=== PATIENT | male | born 1970 | race Caucasian/White ===

== ENCOUNTER 2016-11-03 12:37 | Emergency (ER) | payer BC ==
[2016-11-03] MEDS ORDERED: Sodium Chloride 0.9% 10 ML Syringe FLUSH PRN (14:10)
--- NOTE | 2016-11-03 14:16 | EDM.PDOC ---
ED HPI GI/ABDOMINAL - General Chief Complaint: Back Pain or Injury Stated Complaint: LOW BACK PAIN Time Seen by Provider: 11/03/16 13:55 Source of Information: Reports: Patient History Limitations: Reports: No limitations - History of Present Illness INITIAL COMMENTS - FREE TEXT/NARRATIVE: Patient is a 45 y/o male who presents to the E.D complaining of right cva/flank/ groin pain. States this started abruptly at midnight last night. Pain started right CVA and radiated to his right flank and now it's into his right inguinal region. Describes the discomfort as a dull ache. States at onset discomfort was rated a 7/10. Currently it rated 3-4/10. States pain did mildly decrease with heating pad and application of icy hot. States last night he was unable to get comfortable for a long period of time. He has no history of kidney stones or similar pain in the past. States earlier that morning at approximately 5:30 he did work out his back, legs, and abdomen. He had no discomfort after exercising. Denies any activities or trauma during the course of the day that may contribute discomfort. Patient has no history of inguinal hernias. Denies any pain with urination. Denies any fever/chills, nausea/ vomiting, pain with urination, diarrhea, constipation, or any additional complaints. Patient has a history gastric bypass approximately one year ago and has lost approximately 136 pounds. States he is on calcium supplementation and is currently on a high-protein diet. Timing/Duration: Reports: Constant Location: flank (Right inguinal/flank) Quality: Reports: ache Severity: mild Improves with: Reports: other (Unknown) Worsens with: Reports: other (Unknown) Context: Reports: lifting (Listed back/legs yesterday with no unusual exercises) Associated Symptoms: Reports: back pain (Right flank/CVA), testicular pain ( Intermittent sharp right testicular pain. Radiates from right inguinal region.) , groin pain (Right). Denies: chest pain, shoulder pain, constipation, diarrhea , bloody stools, fever/chills, loss of appetite, malaise, nausea/vomiting Treatments [facility]: Reports: Other (see below) (see hpi) - Related Data Allergies/ADRs: Allergies Allergy/AdvReac Type Severity Reaction Status Date / Time Penicillins Allergy Hives Verified 11/03/16 13:57 Home Meds: Home Meds Multivitamin [Multivitamins] 1 each PO DAILY 10/02/15 [History] Omeprazole [Prilosec] 20 mg PO DAILY 10/02/15 [History] Acetaminophen/HYDROcodone [[place] 325-5 MG] 1 tab PO Q6H PRN #15 tablet 11/03/16 [Rx] Calcium Carbonate [Calcium] 600 mg PO BID 11/03/16 [History] Cyanocobalamin (Vitamin B-12) [Vitamin B-12] 5,000 mcg PO DAILY 11/03/16 [ History] Ondansetron [Zofran ODT] 4 mg PO Q6H PRN #10 tab.dis 11/03/16 [Rx] Tamsulosin HCl [Flomax] 0.4 mg PO QAM #10 cap.er.24h 11/03/16 [Rx] Past Medical History Cardiovascular History: Reports: High cholesterol, Hypertension, Other (see below) Other Cardiovascular History: enlarged heart Respiratory History: Reports: Asthma Gastrointestinal History: Reports: Other (see below) Other Gastrointestinal History: umbilical hernia - Past Surgical History GI Surgical History: Reports: Bariatric procedure Social & Family History - Family History Family Medical History: Noncontributory - Tobacco Use Smoking Status *Q: Never Smoker Second Hand Smoke Exposure: No - Caffeine Use Caffeine Use: Reports: None - Recreational Drug Use Recreational Drug Use: No ED ROS GENERAL - Review of Systems Review Of Systems: ROS reveals no pertinent complaints other than HPI. Constitutional: Reports: no symptoms Respiratory: Reports: No Symptoms Cardiovascular: Reports: No symptoms : Reports: flank pain (Right). Denies: dysuria, frequency, hematuria, incontinence, urinary retention Skin: Denies: bruising Neurological: Denies: Dizziness ED EXAM, GI/ABD - Physical Exam Exam: See Below Exam Limited By: No limitations General Appearance: alert, WD/WN, no apparent distress, obese Ears: hearing grossly normal Nose: normal inspection Throat/Mouth: Normal inspection, No airway compromise Neck: normal inspection, supple Respiratory/Chest: no respiratory distress, lungs clear, normal breath sounds, no accessory muscle use, chest non-tender Cardiovascular: normal peripheral pulses, regular rate, rhythm, no edema, no JVD , no murmur GI/Abdominal: normal bowel sounds, soft, non tender, no organomegaly, no distention (Male) Exam: No hernia, Normal inspection, Circumcised. No: Hernia, Inguinal lymphadenopathy, Scrotal swelling, Scrotum tenderness (L), Scrotum tenderness (R), Testicular tenderness (L), Testicular tenderness (R) Rectal (Males) Exam: Deferred Back Exam: normal inspection, full range of motion, CVA tenderness (R) (Mild). No: CVA tenderness (L), muscle spasm Neurological: alert, oriented, normal cognition, normal gait Psychiatric: normal affect, normal mood Skin Exam: Warm, Dry, Intact, Normal color Course - Vital Signs Last Recorded V/S: Last Vital Signs Temp 98.1 F 11/03/16 13:51 Pulse 79 11/03/16 16:45 Resp 18 11/03/16 16:45 BP 134/79 11/03/16 16:45 Pulse Ox 97 11/03/16 16:45 - Orders/Labs/Meds Orders: Active Orders 24 hr Category Date Time Status Communication Order [RC] STAT Care 11/03/16 15:46 Active Peripheral IV Care [RC] . DIRECTED Care 11/03/16 14:10 Active Abdomen Pelvis wo Cont [CT] Stat Exams 11/03/16 14:45 Taken DME for Discharge [COMM] Stat Oth 11/03/16 15:41 Ordered Peripheral IV Insertion Adult [OM.PC] Stat Oth 11/03/16 14:10 Ordered Labs: Laboratory Tests 11/03/16 11/03/16 11/03/16 Range/Units 14:20 14:26 14:26 WBC 14.35 H (4.23-9.07) K/mm3 RBC 5.13 (4.63-6.08) M/mm3 Hgb 16.1 (13.7-17.5) gm/L Hct 46.1 (40.1-51.0) % MCV 89.9 (79.0-92.2) fl MCH 31.4 (25.7-32.2) pg MCHC 34.9 (32.2-35.5) g/dl RDW Std Deviation 44.3 H (35.1-43.9) fL Plt Count 311 (163-337) K/mm3 MPV 9.9 (9.4-12.3) fl Neut % (Auto) 80.9 H (34.0-67.9) % Lymph % (Auto) 9.3 L (21.8-53.1) % Blair % (Auto) 9.2 (5.3-12.2) % Eos % (Auto) 0.3 L (0.8-7.0) Baso % (Auto) 0.2 (0.1-1.2) % Neut # (Auto) 11.59 H (1.78-5.38) K/mm3 Lymph # (Auto) 1.34 (1.32-3.57) K/mm3 Blair # (Auto) 1.32 H (0.30-0.82) K/mm3 Eos # (Auto) 0.05 (0.04-0.54) K/mm3 Baso # (Auto) 0.03 (0.01-0.08) K/mm3 Manual Slide Review Normal smear Sodium 140 (136-145) mEq/L Potassium 3.5 (3.5-5.1) mEq/L Chloride 105 (98-107) mEq/L Carbon Dioxide 22 (21-32) mEq/L Anion Gap 16.5 H (5-15) BUN 21 H (7-18) mg/dL Creatinine 1.4 H (0.7-1.3) mg/dL Est Cr Clr Drug Dosing 65.93 mL/min Estimated GFR (MDRD) 55 (>60) mL/min BUN/Creatinine Ratio 15.0 (14-18) Glucose 110 H (74-106) mg/dL Calcium 8.8 (8.5-10.1) mg/dL Total Bilirubin 1.0 (0.2-1.0) mg/dL AST 18 (15-37) U/L ALT 31 (16-63) U/L Alkaline Phosphatase 64 (46-116) U/L C-Reactive Protein 0.4 (<1.0) mg/dL Total Protein 6.8 (6.4-8.2) g/dl Albumin 3.8 (3.4-5.0) g/dl Globulin 3.0 gm/dL Albumin/Globulin Ratio 1.3 (1-2) Urine Color Yellow (Yellow) Urine Appearance Slt cloudy H (Clear) Urine pH 6.0 (5.0-8.0) Ur Specific [place] 1.025 (1.005-1.030) Urine Protein Trace H (Negative) Urine Glucose (UA) Negative (Negative) Urine Ketones 2+ H (Negative) Urine Occult Blood 3+ H (Negative) Urine Nitrite Negative (Negative) Urine Bilirubin Negative (Negative) Urine Urobilinogen 1.0 (0.2-1.0) Ur Leukocyte Esterase Negative (Negative) Urine RBC 5-10 H (0-5) /hpf Urine WBC 0-5 (0-5) /hpf Ur Epithelial Cells 0-5 (0-5) /hpf Calcium Oxalate Crystal Moderate H (NONE) Urine Bacteria Few (FEW) /hpf Urine Mucus Not seen (FEW) /hpf Meds: Medications Discontinued Medications Generic Name Dose Route Start Last Admin Trade Name Freq PRN Reason Stop Dose Admin Hydromorphone HCl 0.5 mg 11/03/16 14:54 11/03/16 15:35 Dilaudid IM 11/03/16 14:55 0.5 mg ONETIME ONE Administration Sodium Chloride 1,000 mls @ 250 mls/hr 11/03/16 14:54 11/03/16 15:45 Normal Saline IV 11/03/16 18:53 500 mls/hr ONETIME ONE Infusion Sodium Chloride 10 ml 11/03/16 14:10 11/03/16 15:35 Saline Flush FLUSH 10 ml ASDIRECTED PRN Administration Keep Vein Open Tamsulosin HCl 0.4 mg 11/03/16 15:50 11/03/16 16:04 Flomax PO 11/03/16 15:51 0.4 mg ONETIME ONE Administration - Re-Assessments/Exams Free Text/Narrative Re-Assessment/Exam: Order peripheral IV. Initial labs and studies include CBC, chem 14, CRP, UA with micro. Pain is mild and tolerable per patient at this point. Will hold off any narcotics at this time. 11/03/16 14:17 11/03/16 14:46 Labs reviewed: White blood cell count 14.35, neutrophil percentage 80.9, neutrophil #11.99, sodium 140, potassium 3.5, INR 16.5, creatinine 1.4, creatinine within normal limits. UA revealed trace protein, ketones 2+, occult blood 3+, urine rbc's 5-10, and calcium oxalate moderate. Reassessment, pain constant 4/10. NS 250mls/hr and dilaudid 0.5mg orderd. Ordered CT abdomen/pelvis without contrast, kidney stone protocol. 11/03/16 15:35 CT study did reveal a large kidney stone within the right ureter with hydronephrosis and perinephric fluid present. Awaiting final interpretation by radiology. 11/03/16 15:42 CT abdomen and pelvis without contrast impression: Proximal right ureteral obstructing calculus measuring 5 mm in diameter. Right perinephric edema. Moderate hydronephrosis and proximal right hydroureter. Order Flomax 0.4 mg by mouth. Pain is well-controlled. Will discharge home with instructions and prescriptions as documented. 11/03/16 15:51 Departure - Departure Time of Disposition: 15:46 Disposition: Home, Self-Care 01 Condition: good Clinical Impression: Renal insufficiency, Kidney stones, calcium oxalate Prescriptions: Acetaminophen/HYDROcodone [[place] 325-5 MG] 1 tab PO Q6H PRN #15 tablet PRN Reason: Pain Ondansetron [Zofran ODT] 4 mg PO Q6H PRN #10 tab.dis PRN Reason: Nausea Tamsulosin HCl [Flomax] 0.4 mg PO QAM #10 cap.er.24h Instructions: Kidney Stones, [id number] Referrals: PCP,None [Primary Care Provider] - Forms: ED Department Discharge Additional Instructions: CT of the abdomen did reveal a 5mm kidney stone within your right ureter. This stone has a long ways to go to pass. Will have you strain all urine voids to see if the stone passes. Push the fluids. Utilize Tylenol for mild to moderate pain. For severe pain take [place] as prescribed. For nausea take Zofran 4 mg ODT every 6 hours. Take Flomax one tab every day until stone passes. Followup with a urologist and [place] of your choosing for reevaluation of kidney stones. Return back to the ED if you develop any new or worsening symptoms. No driving today or while taking the [place]. - My Orders Last 24 Hours: My Active Orders 11/03/16 14:10 Peripheral IV Care [RC] . DIRECTED Peripheral IV Insertion Adult [OM.PC] Stat 11/03/16 14:45 Abdomen Pelvis wo Cont [CT] Stat 11/03/16 15:41 DME for Discharge [COMM] Stat 11/03/16 15:46 Communication Order [RC] STAT - Assessment/Plan Last 24 Hours: My Active Orders 11/03/16 14:10 Peripheral IV Care [RC] . DIRECTED Peripheral IV Insertion Adult [OM.PC] Stat 11/03/16 14:45 Abdomen Pelvis wo Cont [CT] Stat 11/03/16 15:41 DME for Discharge [COMM] Stat 11/03/16 15:46 Communication Order [RC] STAT
[2016-11-03] MEDS ORDERED: HYDROmorphone 0.5 MG/0.5 ML Syringe IM ONE (14:54)
[2016-11-03] MEDS ORDERED: Sodium Chloride 0.9% 1,000 ML IV ONE (14:54)
[2016-11-03] MEDS ORDERED: Tamsulosin 0.4 MG Cap.ER PO ONE (15:50)
[2016-11-03 18:29] VITALS: BP 134/79
--- NOTE | 2016-11-04 12:19 | CT ---
CT abdomen and pelvis Technique: Multiple axial sections were obtained from above the dome of the diaphragm inferiorly through the pubic symphysis. Intravenous and oral contrast was not utilized. Study has been performed as a ureteral stone protocol. Findings: Mild right-sided hydronephrosis is seen. Inflammatory change around the right kidney is seen. Both these findings are felt to be caused by a proximal right obstructing ureteral stone located slightly past the UPJ. This stone measures approximately 6.2 mm. No other abnormal calcifications are seen within the right or left kidneys. No other abnormal calcifications are seen along the course of the ureters. Previous stomach and bowel surgery is noted. Visualized portions of the liver and spleen show no discrete abnormality. Small hiatal hernia is noted. Adrenal glands show no nodule. Pancreas appears within normal limits. Gallbladder shows no calcified gallstones. Aorta shows no aneurysmal dilatation. No retroperitoneal adenopathy or mesenteric abnormalities are appreciated. Appendix is seen which is normal. No pelvic mass or adenopathy is seen. No free fluid is seen. Bone window settings were reviewed which appear within normal limits for the patient's age. Impression: 1. Right-sided hydronephrosis with mild surrounding inflammatory change around the right kidney. These findings are caused by an obstructing right proximal ureteral stone measuring about 6.2 mm. 2. Previous abdominal surgery. Small hiatal hernia. 3. No additional abnormality is identified on noncontrast CT study of the abdomen and pelvis. Diagnostic code #3 I agree with preliminary report issued by [facility] (preliminary report dictated on 11/03/16, 4:39 PM Central Time)
== END 2016-11-03 16:45 | disposition home or self-care (01) ==
LOC: JD.ED 12:37
DX: N13.2 Hydronephrosis with renal and ureteral calculous obstruction (principal); N28.9 Disorder of kidney and ureter, unspecified; E78.00 Pure hypercholesterolemia, unspecified; I10 Essential (primary) hypertension; J45.909 Unspecified asthma, uncomplicated; Z88.0 Allergy status to penicillin; Z79.899 Other long term (current) drug therapy; Z98.84 Bariatric surgery status
CPT/HCPCS: 36415; 74176; 80053; 81001; 85025; 86140; 96361; 96374; 99284; A9270; J1170; J7040; J7050

== ENCOUNTER 2020-04-03 17:10 | Emergency (ER) | payer BC ==
[2020-04-03 17:29] VITALS: BP 131/95; PULSE 78
[2020-04-03] MEDS ORDERED: Lidocaine 1% 10 ML MDV INJECT ONE (17:40)
[2020-04-03] MEDS ORDERED: Diphtheria,Pertussis(Acell),Tetanus Vaccine 0.5 ML Syringe IM ONE (17:40)
[2020-04-03] MEDS ORDERED: Cephalexin 500 MG Cap PO ONE (18:15)
--- NOTE | 2020-04-03 19:12 | EDM.PDOC ---
ED HPI GENERAL MEDICAL PROBLEM - General Chief Complaint: Laceration Stated Complaint: LEFT POINTER FINGER CUT/SMASHED Time Seen by Provider: 04/03/20 17:37 Source of Information: Reports: Patient History Limitations: Reports: No Limitations - History of Present Illness INITIAL COMMENTS - FREE TEXT/NARRATIVE: Patient is a 49-year-old male presenting to the emergency department with complaints of lacerations and a crush injury to his left index finger. He states that his finger became crushed between his pontoon and the canopy that attaches to it. Patient is unsure when his last tetanus vaccination was. Left Finger-Index Pain Score (Numeric/FACES): 2 - Related Data Allergies Allergy/AdvReac Type Severity Reaction Status Date / Time Penicillins Allergy Hives Verified 04/03/20 17:29 Home Meds: Home Meds Multivitamin [Multivitamins] 1 each PO DAILY 10/02/15 [History] Omeprazole [Prilosec] 20 mg PO DAILY 10/02/15 [History] Acetaminophen/HYDROcodone [[place] 325-5 MG] 1 tab PO Q6H PRN #15 tablet 11/03/16 [Rx] Calcium Carbonate [Calcium] 600 mg PO BID 11/03/16 [History] Cyanocobalamin (Vitamin B-12) [Vitamin B-12] 5,000 mcg PO DAILY 11/03/16 [History] Ondansetron [Zofran ODT] 4 mg PO Q6H PRN #10 tab.dis 11/03/16 [Rx] Tamsulosin HCl [Flomax] 0.4 mg PO QAM #10 cap.er.24h 11/03/16 [Rx] Past Medical History Cardiovascular History: Reports: High Cholesterol, Hypertension, Other (See Below) Other Cardiovascular History: enlarged heart Respiratory History: Reports: Asthma Gastrointestinal History: Reports: Other (See Below) Other Gastrointestinal History: umbilical hernia - Past Surgical History GI Surgical History: Reports: Bariatric Procedure, Hernia Repair/Other Social & Family History - Family History Family Medical History: Noncontributory - Tobacco Use Smoking Status *Q: Never Smoker Second Hand Smoke Exposure: No - Caffeine Use Caffeine Use: Reports: None - Recreational Drug Use Recreational Drug Use: No ED ROS GENERAL - Review of Systems Review Of Systems: Comprehensive ROS is negative, except as noted in HPI. ED EXAM, SKIN/RASH Exam: See Below General Appearance: Alert, WD/WN, No Apparent Distress Respiratory/Chest: No Respiratory Distress, Lungs Clear, Normal Breath Sounds, No Accessory Muscle Use, Chest Non-Tender Cardiovascular: Normal Peripheral Pulses, Regular Rate, Rhythm, No Edema, No Gallop, No JVD, No Murmur, No Rub Extremities: Other (1 cm V-shaped laceration overlying the middle phalanx of the left index finger. 3 cm laceration to the volar aspect of the left index finger overlying the middle phalanx. Scant amount of active bleeding. Patient has strength of flexion and extension.) Neurological: Alert, Oriented, CN II-XII Intact, Normal Cognition, Normal Gait, Normal Reflexes, No Motor/Sensory Deficits Psychiatric: Normal Affect, Normal Mood ED SKIN PROCEDURES - Laceration/Wound Repair Left Dorsal Digit - 2nd (Index) Appearance: Subcutaneous Anesthetic Type: Local Local Anesthesia - Lidocaine (Xylocaine): 1% Plain Local Anesthetic Volume: 1cc Skin Prep: Providone-Iodine (Betadine), Saline, Sterile Drape Exploration/Debridement/Repair: Wound Explored, Minimal Debridement, No Foreign Material Found Closed with: Sutures Lac/Wound length In cm: 1 (flap laceration) Suture Size: 4-0 # of Sutures: 2 Suture Type: Nylon Sterile Dressing Applied: Provider Tetanus Status Addressed: Yes Complications: No Left Ventral Digit - 2nd (Index) Appearance: Subcutaneous Distal NVT: Neuro & Vascular Intact, No Tendon Injury Local Anesthesia - Lidocaine (Xylocaine): 1% Plain Local Anesthetic Volume: 2cc Skin Prep: Providone-Iodine (Betadine), Saline, Sterile Drape Exploration/Debridement/Repair: Wound Explored, Minimal Debridement, No Foreign Material Found Closed with: Sutures Lac/Wound length In cm: 3 Suture Size: 4-0 # of Sutures: 6 Suture Type: Nylon Suture Size: 4-0 Sterile Dressing Applied: Provider Tetanus Status Addressed: Yes Complications: No Course - Vital Signs Last Recorded V/S: Last Vital Signs Temp 98.3 F 04/03/20 17:26 Pulse 78 04/03/20 17:26 Resp 16 04/03/20 17:26 BP 131/95 H 04/03/20 17:26 Pulse Ox 97 04/03/20 17:26 - Orders/Labs/Meds Orders: Active Orders 24 hr Category Date Time Status Fingers Second Digit Lt F1 [CR] Stat Exams 04/03/20 17:39 Taken Meds: Medications Discontinued Medications Generic Name Dose Route Start Last Admin Trade Name Nathalie PRN Reason Stop Dose Admin Cephalexin 500 mg 04/03/20 18:15 04/03/20 19:04 Keflex PO 04/03/20 18:16 500 mg ONETIME ONE Administration Diphtheria/Tetanus/Acell Pertussis 0.5 ml 04/03/20 17:40 04/03/20 17:52 Adacel IM 04/03/20 17:41 0.5 ml .ONCE ONE Administration Lidocaine HCl 10 ml 04/03/20 17:40 04/03/20 17:54 Xylocaine 1% INJECT 04/03/20 17:41 10 ml ONETIME ONE Administration - Re-Assessments/Exams Free Text/Narrative Re-Assessment/Exam: X-ray of the left index finger shows a small avulsion fracture to the distal aspect of the middle phalanx. Lacerations were closed with sutures. See procedure notes for closure. Since there is a fracture of the bone and open skin, we will treat this as an open fracture. Patient will be started on Keflex for antibiotic prophylaxis. Lacerations were covered with antibiotic ointment and nonstick Telfa. Aluminum splint was applied to the finger. Recommend follow-up with orthopedist, Dr. Deras in approximately 1 week. Sutures to be removed in 7 to 10 days. Discharge instructions as documented. Departure - Departure Time of Disposition: 19:07 Disposition: Home, Self-Care 01 Condition: Good Clinical Impression: Finger laceration Qualifiers: Encounter type: initial encounter Finger: index finger Damage to nail status: without damage Foreign body presence: without foreign body Laterality: left Qualified Code(s): S61.211A - Laceration without foreign body of left index finger without damage to nail, initial encounter Avulsion fracture of middle phalanx of finger Qualifiers: Encounter type: initial encounter Fracture type: open Qualified Code(s): S62.629B - Displaced fracture of middle phalanx of unspecified finger, initial encounter for open fracture - Discharge Information *PRESCRIPTION DRUG MONITORING PROGRAM REVIEWED*: No *COPY OF PRESCRIPTION DRUG MONITORING REPORT IN PATIENT CJ: No Instructions: Finger Fracture, Adult, Laceration Care, Adult Referrals: Latanya Cedeno PA-C [Primary Care Provider] - Jigar Deras MD [Physician] - Forms: ED Department Discharge Additional Instructions: You were seen in the emergency department today for a lacerations to your left index finger. The wounds were cleansed and closed with a total of 8 sutures (2 on top and 6 on the bottom). These should stay intact for 7-10 days. After that time they may be removed in the clinic by a nurse. You were also found to have a small avulsion fracture of your middle phalanx. You have been placed in an aluminum splint. This may be removed to cleanse the lacerations, but is should be otherwise worn at all times. Keep the wound clean and dry. Wash with normal soap and water daily. Do not submerge the wound in water. You have been placed on the antibiotic, Keflex, to prevent infection. Take this medication as prescribed. Call to schedule an appointment with orthopedist, Dr. Deras, toward the end of the week for evaulation and ongoing management of the finger fracture. Return to the ER as needed. Sepsis Event Note (ED) - Evaluation Sepsis Screening Result: No Definite Risk - Focused Exam Vital Signs: Vital Signs Temp Pulse Resp BP Pulse Ox 04/03/20 17:26 98.3 F 78 16 131/95 H 97 - My Orders Last 24 Hours: My Active Orders 04/03/20 17:39 Fingers Second Digit Lt F1 [CR] Stat - Assessment/Plan Last 24 Hours: My Active Orders 04/03/20 17:39 Fingers Second Digit Lt F1 [CR] Stat
--- NOTE | 2020-04-04 15:12 | CR ---
Left second finger: 3 views centered to the left second finger were obtained. Comparison: No prior finger study is available. Small chip fracture is noted off the corner of the distal middle phalanx of the fifth digit. Uncertain if this is acute or old. No additional fracture or other bony abnormality is seen. Soft tissue swelling is present. Impression: 1. Small chip fracture as described above. 2. Diffuse soft tissue swelling. Diagnostic code #3 Study was dictated in [facility]T
== END 2020-04-03 19:20 | disposition home or self-care (01) ==
LOC: JD.ED 17:10
DX: S62.621B Displaced fracture of middle phalanx of left index finger, initial encounter for open fracture (principal); J45.909 Unspecified asthma, uncomplicated; I10 Essential (primary) hypertension; Z79.899 Other long term (current) drug therapy; Z23 Encounter for immunization; Z88.0 Allergy status to penicillin; W23.0XXA Caught, crushed, jammed, or pinched between moving objects, initial encounter
CPT/HCPCS: 12002; 73140; 90471; 90715; 99283; A9270; J2001; 99282

== ENCOUNTER 2023-10-24 07:16 | Day surgery (SDC) | payer BC ==
[~2023-10-24 07:16] MED LIST: Lactated Ringers 1,000 ML IV SCH; Sodium Chloride 0.9% 10 ML Syringe FLUSH PRN; Sodium Chloride 0.9% 10 ML Syringe FLUSH SCH
[2023-10-24] MEDS: Lactated Ringers 1,000 ML IV SCH (07:20)
[2023-10-24 08:06] LABS: HEMATOCRIT 46.4 % (42.0-52.0); MEAN CORPUSCULAR HEMOGLOBIN 30.8 pg (28.0-32.0); MEAN CORPUSCULAR HGB CONC 34.5 g/dl (32.0-36.0); MEAN CORPUSCULAR VOLUME 89.4 fl (83.0-99.0); MEAN PLATELET VOLUME 9.6 fl (9.4-12.4); PLATELET COUNT,PLT 322 K/mm3 (150-400); RED BLOOD CELL COUNT 5.19 M/mm3 (4.52-5.90); WHITE BLOOD CELL COUNT,WBC 6.54 K/mm3 (3.9-11.3)
[2023-10-24 08:22] LABS: ANION GAP 14.8 (5-15); CALCIUM 9.2 mg/dL (8.5-10.1); EST CRCL DRUG DOSING (CG) 82.65 mL/min; POTASSIUM,K 3.8 mEq/L (3.5-5.1)
[2023-10-24] MEDS ORDERED: Lidocaine 1% 4 ML ONE (08:28)
[2023-10-24] MEDS ORDERED: Propofol 200 MG/20 ML SDV ONE (08:28)
[2023-10-24] MEDS ORDERED: Midazolam 1 MG/ML 2 ML SDV ONE (08:28)
[2023-10-24] MEDS ORDERED: fentaNYL 100 MCG/2 ML SDV ONE (08:28)
[2023-10-24] MEDS ORDERED: ePHEDrine 50 MG/ML SDV ONE (09:15)
[2023-10-24 10:21] VITALS: BP 106/70; PULSE 68
== END 2023-10-24 10:09 | disposition home or self-care (01) ==
LOC: JD.SDS 07:16
PROVIDERS: ATTEND Student in an Organized Health Care Education/Training Program
DX: Z12.11 Encounter for screening for malignant neoplasm of colon (principal); I11.9 Hypertensive heart disease without heart failure; E78.00 Pure hypercholesterolemia, unspecified; J45.909 Unspecified asthma, uncomplicated; Z98.84 Bariatric surgery status; Z79.899 Other long term (current) drug therapy; Z88.0 Allergy status to penicillin
CPT/HCPCS: 36415; 45378; 80048; 85027; J2250; J2704; J3010; J7120; 00812; J3490